=== PATIENT | male | born 1970 | race Caucasian/White ===

== ENCOUNTER 2019-07-03 10:07 | Emergency (ER) | payer SELFPAY ==
[~2019-07-03] VITALS: Ht 180.3 cm; Wt 75.3 kg
[2019-07-03 10:11] VITALS: BP 150/59; Ht 180.3 cm; Wt 75.3 kg
== END 2019-07-03 11:44 | disposition left against medical advice (07) ==
LOC: ED 10:07
DX: Z53.21 Procedure and treatment not carried out due to patient leaving prior to being seen by health care provider (principal)
CPT/HCPCS: 82962